=== PATIENT | male | born 1955 | race Caucasian/White ===

== ENCOUNTER 2016-11-21 06:48 | Inpatient (IN) ==
[~2016-11-21 06:48] MED LIST: ACETAMINOPHEN 500 MG TABLET PO ONE; DEXAMETHASONE 4 MG/ML INJECTION IVP ONE; FAMOTIDINE PB 20 MG/50 ML BAG IV ONE; LIDOCAINE 1% (10mg/ml) 2mL INJ PF SDV ID ONE; METOCLOPRAMIDE 10mg/2ml INJECTION IVP ONE; NOZIN NASAL SWAB NAS ONE; ONDANSETRON 4 MG/2 ML INJECTION IVP ONE; TRANEXAMIC ACID 1,000 MG in NS 100 ML IV ONE
[2016-11-21] MEDS ORDERED: TRANEXAMIC ACID 1,000 MG in NS 100 ML IV ONE (07:00)
[2016-11-21] MEDS: LR 1,000 ML IV SCH ×3 (07:35→09:48)
--- NOTE | 2016-11-21 07:40 | Anesthesia Preoperative Report ---
Anesthesia Preoperative Record - Date and Time Date: 11/21/16 Preoperative Diagnosis: Lt TKA M17.12 Proposed Procedure: Left total knee NPO Since Date: 11/21/16 NPO Since Time: 00:00 Allergies/Adverse Reactions: Allergies Allergy/AdvReac Type Severity Reaction Status Date / Time No Known Allergies Allergy Verified 11/21/16 07:05 - Vital Signs Vital Signs: Temperature 97.9 F 11/21/16 07:00 Pulse Rate 73 11/21/16 07:17 Respiratory Rate 17 11/21/16 07:00 Blood Pressure 136/88 11/21/16 07:00 Pulse Oximetry 95 11/21/16 07:00 Height and Weight: Height 1.8 m Weight 107 kg Body Mass Index 32.8 - Medications Inpatient Medications: Current Medications Lactated Ringer's (Lactated Ringers) 1,000 mls @ 50 mls/hr IV .Q20H TORREY Last Admin: 11/21/16 07:35 Dose: 50 mls/hr Epinephrine HCl 0.25 mg/Bupivacaine HCl 30 ml/Morphine Sulfate 15 mg/Ketorolac Tromethamine 60 mg/Sodium Chloride 65.25 mls @ 1 mls/hr OPSITE INTRAOP ONE PRN Reason: Protocol Stop: 11/24/16 01:14 Sodium Chloride (Iv Flush) 10 - 80 ml IV PRN PRN PRN Reason: Flushing Home Medications: Home Medications Medication Instructions Recorded Confirmed Type Advil (Ibuprofen) 200 mg capsule 400 mg PO Q6H PRN 08/26/16 11/21/16 History Lipitor (atorvastatin) 10 mg tablet 10 mg PO HS 90 Days tab 08/26/16 11/21/16 History aspirin 81 mg tablet,delayed 81 mg PO DAILY tab 08/26/16 11/20/16 History release lisinopril 20 mg tablet 20 mg PO DAILY 90 Days tab 08/26/16 11/21/16 History multivitamin tablet 1 cap PO DAILY 08/26/16 11/21/16 History Is Patient on Beta Delio?: No - Medical History Cardiovascular: Reports: Hypertension, High Cholesterol - Surgical History HEENT Surgeries: Reports: Nose Surgery (for fractured nose) Musculoskeletal Surgery/Tx: Reports: Joint Surgery (Lt ankle rebuilt; Lt knee open menisectomy), Knee Arthroscopy (left knee x2), Other (heel spur/ankle spur) Anesthesia Reactions: None Hx Family Anesthesia Reaction: No History of Motion Sickness: No - Social History Smoking Status: Never smoker Hx Chewing Tobacco Use: No Second Hand Exposure: No Substance Use Type: does not use Alcohol Intake Frequency: does not drink - Pertinent Findings EKG: Sinus Rhythm - Physical Exam Respiratory Exam: Present: lungs clear Cardiovascular Exam: Present: regular rate and rhythm - Airway Assessment Mallampati Score: II TMD: 3 Fingerbreadths Neck Extension: good Overall Assessment: no airway concerns - ASA ASA Score: 2 - Plan Regional/Trunk Block: Spinal - Discussion Discussion: Discussed risks/options/alternatives of anesthesia and questions answered. Patient consents. Nursing pain assessment noted. Present for Discussion: spouse Attestation Statement: Prior to the delivery of any anesthetic medication, I examined the patient, developed the plan, obtained the patient's consent and discussed the risk and benefits of the procedure with the patient/guardian. - Additional Information Seen by Anesthesia: Yes
[2016-11-21] MEDS ORDERED: PROPOFOL 500 MG/50 ML VIAL IV ONE (07:51)
[2016-11-21] MEDS ORDERED: MIDAZOLAM 2mg/2ml INJECTION ONE (07:53)
[2016-11-21] MEDS ORDERED: CEFAZOLIN 1 G INJECTION IVP ONE (07:53)
[2016-11-21] MEDS ORDERED: EPINEPHrine 0.25 MG, BUPIVACAINE 0.25% PF 30 ML, MORPHINE SULFATE 15 MG, KETOROLAC INJ ... OPSITE ONE (08:00)
[2016-11-21] MEDS ORDERED: VANCOMYCIN 1,000 MG INJECTION ONE (08:03)
[2016-11-21] MEDS ORDERED: VANCOMYCIN 1,000 MG INJECTION IAR ONE (10:13)
--- NOTE | 2016-11-21 10:23 | Operative Note ---
- Procedure Preoperative Diagnosis: Left knee primary degenerative joint disease Postoperative Diagnosis: Same as preoperative diagnosis. Surgeon: Jamin Dixon MD [employer] Developer: Dariel Mayer Complications: None. Anesthesia: Spinal. Estimated Blood Loss: See Anesthesia Record. Fluids: Please see Anesthesia Record. Description of Procedure: Mr. Wilson and his left knee were identified and marked in the preoperative holding area. He was brought back to the operating suite after a saphenous nerve block was placed in the preoperative holding area. Spinal anesthetic was administered and he was placed supine on the operating table. The left lower extremity was prepped and draped in my normal sterile fashion. Timeout was performed. The C-sam robot was used during the surgery. He has fixed varus deformity. A standard anterior midline incision followed by medial parapatellar arthrotomy was performed. Anterior fat pad and meniscus were removed. The patella was resurfaced to a size 35. A tibial array was placed in the most inferior aspect of the incision. Medial to the tibial tubercle. I then placed a second femoral array again using bicortical pins in the distal femoral metaphysis medially. Checkpoints were then placed both in the femur and the tibia. The bone was then registered with the C-sam robot. Osteophytes were removed and gaps were captured both 90 and 0 with correction. He started with a 7 varus deformity and flexion and 11 in extension. After adjusting components his deformity was down to 5 varus. The C-sam robotic arm was then used to assist with the bone cuts. Posterior osteophytes and remaining meniscus were removed. Trial components were placed. We used a 6 femur and a 6 tibia with a 13 mm spacer. He tracked well and was well balanced throughout range of motion. The leg was exsanguinated and the tourniquet inflated to 250 mmHg. The bone was prepared for cementing and components were cemented into place and allowed to cure in extension. The tourniquet was let down and hemostasis obtained with electrocautery. The knee was ranged one more time to ensure good stability, balance and patellar tracking. 1 g of vancomycin powder was then placed into the knee joint. The capsulotomy was then closed with #1 Vicryl. I then left my assistant professor of theater to close the subcutaneous tissue with 2-0 Vicryl. Running 4-0 Monocryl will be used in the subcuticular layer. Dermabond will be used on the skin followed by sterile dressing. After drapes are removed patient will be taken to recovery room under the care of anesthesia.
--- NOTE | 2016-11-21 10:40 | History & Physical Update ---
- History and Physical Update Date: 11/21/16 Update: I evaluated this patient and found no changes in the history and clinical exam findings. The treatment plan and recommendations are also unchanged from the previous documentation.
[2016-11-21] MEDS ORDERED: ROPIVACAINE 0.5% (5mg/ml) 30ml INJ ONE (10:48)
--- NOTE | 2016-11-21 11:05 | Anesthesia Procedure Note ---
Peripheral Nerve Blockade - Procedure Physician: Clive Dixon MD Date: 11/21/16 Surgical Procedure: Left Total Knee Discussion: Discussed risks/options/alternatives of anesthesia and questions answered. Patient consents. Nursing pain assessment noted. Block Start: 10:56 Block Stop: 11:01 Blocked Employed: Adductor Canal Indication: Post-Operative Pain Approach: Left Side Confirmed Position: Supine Patient: Consent, Risks/Benefits Discussed, Informed, Post Block Act. Discussed IV Sedation: No Initial Vital Signs: Temperature 97.9 F 11/21/16 07:00 Temperature Source Oral 11/21/16 07:00 Pulse Rate 73 11/21/16 07:00 Respiratory Rate 17 11/21/16 07:00 Blood Pressure 136/88 11/21/16 07:00 Blood Pressure Mean 104 11/21/16 07:00 Blood Pressure Position Sitting 11/21/16 07:00 Pulse Oximetry 95 11/21/16 07:00 Oxygen Delivery Method 11/21/16 07:00 Post Vital Signs: Temperature 97.9 F 11/21/16 07:00 Pulse Rate 73 11/21/16 07:17 Respiratory Rate 17 11/21/16 07:00 Blood Pressure 136/88 11/21/16 07:00 Pulse Oximetry 95 11/21/16 07:00 Initial Pain Pain Score: 0 Post Block Pain Score: 0 Prep: Chlorhexadine/ETOH Ultrasound Used?: Yes - Injectate Ropivacaine (%): 0.5 Ropivacaine (mL): 25 Was Epi 1:200,000 Used?: No Injection: Injection made incrementally with constant monitoring and aspiration every ml
[2016-11-21] MEDS ORDERED: ONDANSETRON 4 MG/2 ML INJECTION IVP PRN (11:29)
[2016-11-21] MEDS ORDERED: DiphenhydrAMINE 50 MG/ML INJECTION IVP PRN (11:29)
[2016-11-21] MEDS ORDERED: LORazepam 1 MG TABLET PO PRN (11:29)
[2016-11-21] MEDS ORDERED: DiphenhydrAMINE 25 MG CAPSULE PO PRN (11:29)
[2016-11-21] MEDS ORDERED: IBUPROFEN 400 MG TABLET PO PRN (11:29)
[2016-11-21] MEDS ORDERED: NOZIN NASAL SWAB NAS ONE (11:29)
--- NOTE | 2016-11-21 11:30 | XRay Report ---
Indication: postoperative image PROCEDURE: XR knee LT 2V: Encounter: Initial Comparison: August 26, 2016 Findings: Postoperative changes of left total knee replacement are seen. There is expected postoperative subcutaneous gas. No evidence of hardware failure or acute fracture. No retained radiopaque surgical instruments or sponges. Overlying material causing artifact. Impression: New left total knee prosthesis without evidence of immediate complication. .
[2016-11-21 11:39] VITALS: BMI 34.9
[2016-11-21] MEDS ORDERED: FALL RISK - PHARMACY CONSULT XX ONE (11:41)
[2016-11-21] MEDS: NS 1,000 ML IV SCH (11:42)
--- NOTE | 2016-11-21 12:24 | Anesthesia Postoperative Note ---
- Date and Time Date: 11/21/16 Time: 11:20 - Status Patient Participated in Evaluation: Patient Participated in Person Vital Signs: Temperature 96.0 F L 11/21/16 11:37 Pulse Rate 75 11/21/16 11:37 Respiratory Rate 16 11/21/16 11:37 Blood Pressure 111/65 11/21/16 11:37 Pulse Oximetry 94 11/21/16 11:37 Respiratory Function: Airway Patent Cardiovascular Function: Regular Pulse EKG: Sinus Rhythm Mental Status: Alert and Oriented Pain Intensity: 0 Hydration: IV Infusing Complications During Recover: None Apparent - Follow-Up Instructions Instructions: Per Surgeon
[2016-11-21] MEDS: ACETAMINOPHEN 325 MG TABLET PO SCH ×3 (14:20→21:08)
[2016-11-21] MEDS: NOZIN NASAL SWAB NAS SCH ×2 (14:21→21:08)
[2016-11-21] MEDS ORDERED: SALINE FLUSH 10ml SYRINGE IV PRN (15:28)
[2016-11-21] MEDS: CEFAZOLIN 2 G in NS 100 ML IV SCH (16:57)
[2016-11-21] MEDS ORDERED: ATORVASTATIN 10 MG TABLET PO SCH (21:00)
[2016-11-21] MEDS ORDERED: SENNOSIDES 8.6 MG TABLET PO SCH (21:00)
[2016-11-21] MEDS: ASPIRIN *EC* 81 MG TABLET PO SCH (21:08)
[2016-11-21] MEDS: DOCUSATE SODIUM 100 MG CAPSULE PO SCH (21:09)
[2016-11-22] MEDS: NS 1,000 ML IV SCH (00:41)
[2016-11-22] MEDS: CEFAZOLIN 2 G in NS 100 ML IV SCH (01:44)
[2016-11-22] MEDS: NOZIN NASAL SWAB NAS SCH ×2 (05:43→13:31)
--- NOTE | 2016-11-22 06:15 | Orthopedic Progress Note ---
Date: Subjective/Severity of Illness: Yossi is doing well. Pain is controlled. He is mobile with good tolerance. No CP or cough. Orthopedic Objective PO Vital signs: Temperature 96.5 F L 11/22/16 04:00 Pulse Rate 73 11/22/16 04:00 Respiratory Rate 14 11/22/16 04:00 Blood Pressure 130/74 11/22/16 04:00 Pulse Oximetry 96 11/22/16 04:00 Height and Weight: Height 5 ft 11 in Weight 250 lb 7.122 oz Body Mass Index 34.9 - Constitutional General Appearance: Present: alert, no acute distress - Respiratory Exam Present: non-labored - Extremities Exam Extremities: Present: pulses intact, normal capillary refill. Absent: calf tenderness - Surgical Site Incision: Mepilex dressing intact, no drainage - Integumentary Exam Present: pink, warm, dry - Neurological Exam Present: no deficits - Psychiatric Exam Present: alert - Labs Result Diagrams: 11/22/16 04:50 11/22/16 04:50 Abnormal lab results 11/22/16 Range/Units 04:50 WBC 12.2 H (4.5-11.0) T/MM3 RBC 3.80 L (4.50-5.90) M/MM3 Hgb 12.0 L (13.5-17.5) GM/DL Hct 35.2 L (41-53) % H & H 11/22/16 Range/Units 04:50 Hgb 12.0 L (13.5-17.5) GM/DL Hct 35.2 L (41-53) % Orthopedic Assessment and Plan (1) Primary osteoarthritis of left knee Status: Acute Assessment and Plan: Current anti-coagulation protocol for VTE prophylaxis. SCD's. PT/OT services to improve independent function. Discharge Planning per Case Management. - Anticoagulation Therapy Anticoagulation: other Hospital Course Summary Disclaimer: The visit summary below is not to be considered part of the above Progress Note.
[2016-11-22] MEDS: Oxycodone *IR* 5 MG TABLET PO PRN ×2 (07:29→11:54)
[2016-11-22] MEDS: DOCUSATE SODIUM 100 MG CAPSULE PO SCH (08:56)
[2016-11-22] MEDS: ACETAMINOPHEN 325 MG TABLET PO SCH ×2 (08:56→13:30)
[2016-11-22] MEDS: ASPIRIN *EC* 81 MG TABLET PO SCH (08:56)
[2016-11-22] MEDS ORDERED: POLYETHYL GLYCOL 3350 17gm PACKET PO SCH (09:00)
[2016-11-22] MEDS ORDERED: LISINOPRIL 20 MG TABLET PO SCH (09:00)
[2016-11-22] MEDS ORDERED: SENNOSIDES 8.6 MG TABLET PO PRN (10:41)
[2016-11-22 11:50] VITALS: BP 120/69; PULSE 87; RESP 16; TEMP 97.9; O2SAT 94
--- NOTE | 2016-11-22 13:51 | Discharge Summary ---
Orthopedic Discharge Info Date of admission: 11/21/16 06:48 Primary care physician: Jose Mike MD Attending Physician: Clive Dixon MD Consults: 11/21/16 07:02 Consult to Anesthesiology [CONS] Routine Consulting Provider: RADHA Fraga Reason For Exam: Preoperative Assessment 11/21/16 11:29 Case Management Consult [CONS] Routine Reason For Exam: Discharge Planning DME-Walker [CONS] Routine Height: 5 ft 11 in Weight: 235 lb 14.314 oz Comment: change dressing in 2 weeks Total Joint Outpatient Therapy [CONS] Routine Comment: change dressing in 2 weeks - Discharge Diagnosis (1) Primary osteoarthritis of left knee Status: Acute - Procedures Procedures: L TKA - Laboratory Result Diagrams: 11/22/16 04:50 11/22/16 04:50 Laboratory: Abnormal lab results 11/22/16 Range/Units 04:50 WBC 12.2 H (4.5-11.0) T/MM3 RBC 3.80 L (4.50-5.90) M/MM3 Hgb 12.0 L (13.5-17.5) GM/DL Hct 35.2 L (41-53) % H & H 11/22/16 Range/Units 04:50 Hgb 12.0 L (13.5-17.5) GM/DL Hct 35.2 L (41-53) % Orthopedic Discharge HPI - HPI Comments This patient was admitted for elective surgical tx of end stage degenerative joint disease that failed to respond to conservative treatment. Further details of this is found in the admission H&P. Orthopedic Hospital Course Hospital course: 11/22/16 13:51 After appropriate preoperative clearance and signing of operative consent, the patient was given IV antibiotics, according to orthopedic protocol. The patient was taken to the operating room and underwent elective joint arthroplasty. Following surgery, antibiotics were discontinued less than 24 hours according to joint protocol. Appropriate anticoagulants were initiated and SCDs added for DVT prevention. The dressing was clean, dry, and intact. Pain control was obtained via multimodal approach. Bowel motivation addressed with scheduled and PRN medications. Early mobilization was initiated through PT services. Discharge arrangements made by a collaborative effort between the patient and Case Management. Follow-up is scheduled in 2-3 weeks. Discharge instructions given by orthopedic providers and nursing staff at discharge. Discharge condition was good. Ongoing care required?: No Discharge Plan - Med Rec/Dispo Referrals/Follow Up: Clive Dixon MD [Physician] - 12/16/16 3:15 pm Lan Instructions: [facility] Ortho Postop Instructions Additional Instructions: [facility] [place] ON 11/25/2016 AT 9:20AM FOR PHYSICAL THERAPY EVAL, THE REMAINING APPOINTMENTS WILL BE SCHEDULED AT THE [facility]. PHONE [phone] Prescriptions: New Aspirin *EC* [Ecotrin] 81 mg PO BID #100 tab Docusate Sodium [Colace] 100 mg PO BID capsule Oxycodone *IR* [Roxicodone *Ir*] 5 - 15 mg PO Q3H PRN #60 tab PRN Reason: Breakthrough Pain Milk of Magnesia [Mom] 30 ml PO DAILY udc Continue lisinopril 20 mg tablet 20 mg PO DAILY 90 Days tab Advil (Ibuprofen) 200 mg capsule 400 mg PO Q6H PRN PRN Reason: pain multivitamin tablet 1 cap PO DAILY Lipitor (atorvastatin) 10 mg tablet 10 mg PO HS 90 Days tab Discontinued aspirin 81 mg tablet,delayed release 81 mg PO DAILY tab - Disposition 01 Discharged Home, Self-Care
[2016-11-23] MEDS ORDERED: BISACODYL 10 MG SUPPOSITORY RECTALLY SCH (20:00)
== END 2016-11-22 14:22 | disposition home or self-care (01) | DRG 470 ==
LOC: SRG 06:48
PROVIDERS: ADMIT Orthopaedic Surgery; ATTEND Orthopaedic Surgery